=== PATIENT | female | born 1970 | race Caucasian/White ===

== ENCOUNTER 2021-02-20 10:35 | Observation (INO) | payer BC, SELFPAY ==
[~2021-02-20] VITALS: Ht 170.2 cm; Wt 78.0 kg
[~2021-02-20 10:35] MED LIST: ASPI325 PO; BACLOFEN5 M1 PO; CALCIUM 600 +1 EA11 PO; CHLO4 PO; Crestor40 MG PO; FISH OIL 1,2001 EAC7 PO; Magnesium250 MG PO; RHINOCORT ALL8.43 M1; TOPI25 PO; TURMERIC500 M2 PO; Vitamin B Comple1 EA PO
[2021-02-20] MEDS ORDERED: MECL25 PO (14:35)
--- NOTE | 2021-02-20 17:53 | NUR ---
PT ARRIVAL... PT ARRIVED ON UNIT FOR [facility]. PT HAD A RE-PROFUSION ON THE RLE WITH LEFT FEMORAL ACCESS. LEFT GROIN SITE HAS ANGIO SEAL AND CHG TEGADERM IN PLACE. NO BLEEDING, SWELLING OR HEMATOMA NOTED. PT DENIES ANY PAIN AT THIS TIME. PULSES ARE PALPABLE TO BLE, RIGHT DORSAL PEDAL AND POST TIB ARE A LITTLE LESS STRONG THAN ON THE LEFT. BLE ARE PINK WARM AND DRY WITH GOOD CAP REFIL. PT DENIES ANY NUMBNESS/TINGLING. VS STABLE AT THIS TIME. PT EDUCATED ON BLEEDING PRECAUTIONS FOR THE GROIN SITE. PT VERBALIZED HER UNDERSTANDING TO THIS RN. CALL LIGHT IN REACH WILL CONTINUE TO MONITOR.
--- NOTE | 2021-02-20 18:58 | NUR ---
PT UPDATE.... SPOKE WITH DR. CLARKE, HE GAVE THIS RN VERBAL ORDER FOR PLAVIX 75MG PO DAILY FOR THE PT. PER DR. CLARKE AFTER 2 HOURS IF NO BLEEDING OR HEMATOMA IS NOTED THE PT CAN D/C HOME.
[2021-02-20] MEDS ORDERED: CLOP75 PO (19:14)
--- NOTE | 2021-02-20 21:06 | NUR ---
Patient having increased blood pressures SBP>150/DBP>80 called MD Omer to report, okayed patient to discharge home, all discharge instruction were read to patient, patient received her night time medications and was taken via wheelchair with all belongings present. Her pick her up via private car.
== END 2021-02-20 21:05 | disposition home or self-care (01) ==
LOC: MHTC 10:35 → ICUW 17:50
PROVIDERS: ADMIT Radiology Diagnostic Radiology
DX: I70.213 Atherosclerosis of native arteries of extremities with intermittent claudication, bilateral legs (principal); I65.23 Occlusion and stenosis of bilateral carotid arteries; E78.5 Hyperlipidemia, unspecified; Z87.891 Personal history of nicotine dependence; Z79.82 Long term (current) use of aspirin
CPT/HCPCS: 37227; 75625; 75716; 75774; 76937; 99152; 99153; A9270; C1714; C1725; C1760; C1769; C1874; C1884; C1887; C1894; C2623; J1644; J2250; J2997; J3010; J7030; J7050; Q9967

== ENCOUNTER 2022-07-16 07:14 | Day surgery (SDC) | payer BC ==
[~2022-07-16] VITALS: Ht 170.2 cm; Wt 74.2 kg
[~2022-07-16 07:14] MED LIST changes: +CLOP75 PO; +MECL25 PO; +XARELTO20 MG PO
[2022-07-16] MEDS ORDERED: Baclofen20 MG (08:15)
[2022-07-16] MEDS ORDERED: CELE200 (08:15)
--- NOTE | 2022-07-16 10:38 | NUR ---
07/16/22 Shahram Jordan PT REPORTED 6/10 PAIN UPON DISCHARGE, BUT SHE STATED THE PAIN WAS TOLERABLE AND IMPROVING. SHE EXPRESSED READINESS TO GO HOME.
== END 2022-07-16 10:20 | disposition home or self-care (01) ==
LOC: ORSCSDS 07:14
PROVIDERS: Orthopaedic Surgery
PROC: 01N50ZZ Release Median Nerve, Open Approach (ICD-10-PCS; principal; 2022-07-16 08:30)
PROC: 01S40ZZ Reposition Ulnar Nerve, Open Approach (ICD-10-PCS; principal; 2022-07-16 08:30)
DX: G56.22 Lesion of ulnar nerve, left upper limb (principal); G56.02 Carpal tunnel syndrome, left upper limb; E78.5 Hyperlipidemia, unspecified; Z87.891 Personal history of nicotine dependence; Z79.899 Other long term (current) drug therapy; Z79.02 Long term (current) use of antithrombotics/antiplatelets; Z79.01 Long term (current) use of anticoagulants
CPT/HCPCS: A9270; J0690; J1100; J1885; J2250; J2405; J2704; J2795; J3010; J7120

== ENCOUNTER 2025-08-26 19:56 | Emergency (ER) | payer BC ==
[~2025-08-26] VITALS: Ht 170.2 cm; Wt 70.3 kg
[~2025-08-26 19:56] MED LIST changes: +Baclofen20 MG; +CELE200
[2025-08-26 20:29] VITALS: BP 116/69
[2025-08-26 20:52] LABS: BASOPHILS ABSOLUTE AUTO 0.09 K/mm3 (0.00-0.23); BASOPHILS PERCENT AUTO 1 % (0-2); EOSINOPHILS ABSOLUTE AUTO 0.11 K/mm3 (0.00-0.68); EOSINOPHILS PERCENT AUTO 1 % (0-6); Hematocrit 37.3 % (33.0-51.0); Hemoglobin 12.7 g/dL (11.5-16.0); IMMATURE GRAN ABSOLUTE AUTO 0.06 K/mm3 (0.00-0.10); IMMATURE GRAN PERCENT AUTO 0 % (0-1); LYMPHOCYTES ABSOLUTE AUTO 2.65 K/mm3 (0.84-5.20); LYMPHOCYTES PERCENT AUTO 18 % (21-46); MONOCYTES ABSOLUTE AUTO 0.68 K/mm3 (0.16-1.47); MONOCYTES PERCENT AUTO 5 % (4-13); Mean Corpuscular HGB Conc 34.0 g/dL (31.5-36.5); Mean Corpuscular Volume 89 fL (80-100); NEUTROPHILS ABSOLUTE AUTO 10.90 K/mm3 (1.96-9.15); NEUTROPHILS PERCENT AUTO 75 % (41-73); NRBC ABSOLUTE 0.00 K/mm3 (0.00-0.02); NRBC Auto 0.0 /100 WBC (0.0-0.2); Platelet Count 334 K/mm3 (150-400); RDW Coefficient Variation 12.6 % (11.7-14.2); RDW Standard Deviation 41.6 fL (35.1-46.3)
[2025-08-26 21:13] LABS: Alanine Aminotransfer (ALT/SGP 37.0 U/L (12-78); Albumin, Blood 3.9 g/dL (3.4-5.0); Albumin/Globulin Ratio 1.3 (0.8-1.8); Anion Gap 7.0 mmol/L (3-11); Aspartate Aminotrans (AST/SGOT 23.0 U/L (12-37); Bilirubin, Total 0.2 mg/dL (0.1-1.0); Blood Urea Nitrogen 22.0 mg/dL (8-24); CO2, Blood 27.0 mmol/L (21-32); Calcium, Blood 8.7 mg/dL (8.5-10.1); Chloride, Blood 103.0 mmol/L (98-108); Creatinine, Blood 0.59 mg/dL (0.40-1.00); Globulin, Blood 3.0 g/dL (2.2-4.0); Glucose, Blood 121.0 mg/dL (70-99); Potassium, Blood 3.8 mmol/L (3.5-5.5); Sodium, Blood 133.0 mmol/L (136-145); Total Protein, Blood 6.9 g/dL (6.4-8.2)
[2025-08-26] MEDS ORDERED: IBU600 M1 PO (23:57)
[2025-08-26] MEDS ORDERED: FAMO20 PO (23:57)
[2025-08-27] MEDS ORDERED: HYDROcodone 7.5-APAP 325 TAB PO ONE
[2025-08-27] MEDS ORDERED: Ondansetron HCl 2 MG / ML 2ML Vial IV ONE
[2025-08-27] MEDS ORDERED: RX Prepack 2 Tabs Ondansetron ODT 4MG UD ONE (00:05)
== END 2025-08-27 00:23 | disposition home or self-care (01) ==
LOC: ER 19:56
PROVIDERS: Student in an Organized Health Care Education/Training Program
DX: S09.90XA Unspecified injury of head, initial encounter (principal); S20.212A Contusion of left front wall of thorax, initial encounter; W01.0XXA Fall on same level from slipping, tripping and stumbling without subsequent striking against object, initial encounter; Z87.891 Personal history of nicotine dependence; Z79.02 Long term (current) use of antithrombotics/antiplatelets; Z79.899 Other long term (current) drug therapy
CPT/HCPCS: 71101; 80053; 85025; 96374; 99284-25; A9270; J2405